=== PATIENT | male | born 1960 | race Caucasian/White ===

== ENCOUNTER 2019-04-09 07:03 | Day surgery (SDC) | payer BC, MEDICAID ==
[2019-04-09] MEDS ORDERED: fentaNYL 100 MCG/2 ML SDV ONE (07:27)
[2019-04-09] MEDS ORDERED: Midazolam 1 MG/ML 2 ML SDV ONE (07:27)
[2019-04-09] MEDS ORDERED: Propofol 200 MG/20 ML SDV ONE (07:27)
[2019-04-09] MEDS ORDERED: Sodium Chloride 0.9% 1,000 ML IV SCH (07:57)
--- NOTE | 2019-04-09 11:37 | OR ---
DATE OF PROCEDURE: 04/09/2019 SURGEON: Addy Williamson MD PROCEDURE: Colonoscopy. FINDINGS: 1. Sigmoid colon polyp, approximately 5 mm, completely removed using hot snare device. 2. Rectal biopsy using cold biopsy forceps. COMPLICATIONS: None. CLIENT SERVICES ADMINISTRATOR: None. ANESTHESIA: MAC. PREOPERATIVE DIAGNOSIS: Family history of colorectal cancer. POSTOPERATIVE DIAGNOSIS: Family history of colorectal cancer. RISKS: Risks, benefits, alternatives, and limitations including, but not limited to infection, bleeding, and perforation were explained to the patient, who wished to proceed. PROCEDURE IN DETAIL: The patient was placed in left lateral decubitus position. Digital rectal exam showed a palpable prominent internal hemorrhoid. The scope was introduced and advanced atraumatically to the ileocecal valve. A photo was taken. The scope was brought back through the ascending, transverse, descending colon, and retroflexed. The aforementioned polyp was identified and completely removed. The rectal hemorrhoid was more pedunculated. This was biopsied using cold biopsy forceps. No other abnormalities were noted. The patient tolerated the procedure well. Addy Williamson MD /[id number]
== END 2019-04-09 10:31 | disposition home or self-care (01) ==
LOC: JP.SDS 07:03
PROVIDERS: ATTEND Surgery
DX: Z12.11 Encounter for screening for malignant neoplasm of colon (principal); D12.5 Benign neoplasm of sigmoid colon; K62.1 Rectal polyp; K64.8 Other hemorrhoids; I10 Essential (primary) hypertension; E11.9 Type 2 diabetes mellitus without complications; Z80.0 Family history of malignant neoplasm of digestive organs; Z88.8 Allergy status to other drugs, medicaments and biological substances
CPT/HCPCS: 88305; J2250; J2704; J3010

== ENCOUNTER 2022-04-18 07:46 | Day surgery (SDC) | payer BC ==
[2022-04-18] MEDS ORDERED: fentaNYL 50 MCG/ML SDV ONE (08:09)
[2022-04-18] MEDS ORDERED: Midazolam 1 MG/ML 2 ML SDV ONE (08:09)
[2022-04-18] MEDS ORDERED: Propofol 200 MG/20 ML SDV ONE ×2 (08:09→09:33)
[2022-04-18] MEDS ORDERED: Lactated Ringers 1,000 ML IV SCH (08:30)
== END 2022-04-18 10:49 | disposition home or self-care (01) ==
LOC: JP.SDS 07:46
PROVIDERS: ATTEND Student in an Organized Health Care Education/Training Program
DX: Z12.11 Encounter for screening for malignant neoplasm of colon (principal); K63.5 Polyp of colon; I10 Essential (primary) hypertension; G47.33 Obstructive sleep apnea (adult) (pediatric); E66.9 Obesity, unspecified; Z68.34 Body mass index [BMI] 34.0-34.9, adult; Z85.048 Personal history of other malignant neoplasm of rectum, rectosigmoid junction, and anus; Z79.899 Other long term (current) drug therapy; Z88.8 Allergy status to other drugs, medicaments and biological substances
CPT/HCPCS: 88305; J2250; J2704; J3010; J7120

== ENCOUNTER 2025-02-24 07:59 | Day surgery (SDC) | payer MEDICARE ==
[2025-02-24] MEDS: Lactated Ringers 1,000 ML IV SCH (09:29)
[2025-02-24] MEDS ORDERED: Midazolam 1 MG/ML 2 ML SDV ONE (10:22)
[2025-02-24] MEDS ORDERED: Propofol 200 MG/20 ML SDV ONE ×2 (10:22→12:01)
[2025-02-24] MEDS ORDERED: fentaNYL 50 MCG/ML SDV ONE (10:22)
== END 2025-02-24 13:00 | disposition home or self-care (01) ==
LOC: JP.SDS 07:59
PROVIDERS: ATTEND Surgery
DX: Z12.11 Encounter for screening for malignant neoplasm of colon (principal); I10 Essential (primary) hypertension; E66.9 Obesity, unspecified; Z80.0 Family history of malignant neoplasm of digestive organs; Z88.8 Allergy status to other drugs, medicaments and biological substances; Z68.30 Body mass index [BMI] 30.0-30.9, adult; Z79.84 Long term (current) use of oral hypoglycemic drugs; Z79.899 Other long term (current) drug therapy; Z86.0100 Personal history of colon polyps, unspecified
CPT/HCPCS: J2250; J2704; J3010; J7120